=== PATIENT | female | born 1990 | race Caucasian/White ===

== ENCOUNTER 2019-04-18 12:41 | Outpatient (CLI) | payer OTHER ==
[~2019-04-18] VITALS: Ht 154.9 cm; Wt 80.9 kg
[2019-04-18 13:14] VITALS: BP 128/69; PULSE 113; RESP 18; Ht 154.9 cm; Wt 80.9 kg
[2019-04-18] MEDS ORDERED: PNV11TAB PO (13:16)
--- NOTE | 2019-04-18 17:13 | TRIAGE ---
OB Triage Datetime Report Generated by CPN: 04/18/2019 17:12 Datetime: 04/18/2019 16:43 Stage of : OB Triage Vaginal Exam Dilatation (cms): 0.0 Exam By: S PEPE Vaginal Bleeding: None Cervix, Consistency: Soft Cervix, Position: Posterior Presentation 'A': Cephalic Datetime: 04/18/2019 16:38 Labor Evaluation Frequency: 8-12 Monitor Mode: External Duration (sec)2399: 50-70 Quality: Mild Pattern: Normal: <= 5 Contractions in 10 Minutes Resting Tone [place]: Relaxed Heart Rate FHR Baseline Rate: 145 Monitor Mode: External US Variability: Moderate 6-25 bpm Accelerations: 10X10 Decelerations: None Category: Category I Pain Assessment Pain Scale: 0 Pain Presence: None/Denies Pain Type: N/A Pain Goal: 3 Pain Relief Measures: Comfort Measures Datetime: 04/18/2019 15:46 Labor Evaluation Frequency: 8-10 Monitor Mode: External Duration (sec)2399: 50-60 Quality: Mild Pattern: Normal: <= 5 Contractions in 10 Minutes Resting Tone [place]: Relaxed Heart Rate FHR Baseline Rate: 145 Monitor Mode: External US Variability: Moderate 6-25 bpm Accelerations: 10X10 Decelerations: None Category: Category I Pain Assessment Pain Scale: 0 Pain Presence: None/Denies Pain Type: N/A Pain Goal: 3 Pain Relief Measures: Comfort Measures Datetime: 04/18/2019 15:08 Labor Evaluation Frequency: 8-10 Monitor Mode: External Duration (sec)2399: 40-60 Quality: Mild Pattern: Normal: <= 5 Contractions in 10 Minutes Resting Tone [place]: Relaxed Heart Rate FHR Baseline Rate: 145 Monitor Mode: External US Variability: Moderate 6-25 bpm Accelerations: 10X10 Decelerations: None Category: Category I Pain Assessment Pain Scale: 3 Pain Presence: Constant Pain Type: Ache Pain Location: Abdomen Pain Goal: 3 Pain Relief Measures: Comfort Measures Datetime: 04/18/2019 14:10 Stage of : OB Triage Labor Evaluation Frequency: 8-10 Monitor Mode: External Duration (sec)2399: 40-60 Quality: Mild Pattern: Normal: <= 5 Contractions in 10 Minutes Resting Tone [place]: Relaxed Heart Rate FHR Baseline Rate: 145 Monitor Mode: External US Variability: Moderate 6-25 bpm Accelerations: 10X10 Decelerations: None Category: Category I Pain Assessment Pain Scale: 5 Pain Presence: Constant Pain Location: Abdomen Pain Goal: 3 Pain Relief Measures: Comfort Measures Datetime: 04/18/2019 13:51 Stage of : OB Triage Datetime: 04/18/2019 13:07 Stage of : OB Triage Assessment Type: Triage Maternal Assessment Level of Consciousness: Keenly Alert, Responsive DTR's/Clonus: DTRs 2+; No Clonus Headache: Denies Blurred Vision: No Respiratory Effort: Unlabored; Regular Rhythm; Equal Expansion Breath Sounds, Left: Clear and Equal Breath Sounds, Right: Clear and Equal Nausea/Vomiting: Denies RUQ Epigastric Pain: Denies Facial Edema: None Temperature Route: Axillary Fall Risk Assessment History of Falling: (0) No Secondary Diagnosis: (0) No Ambulatory Aid: (0) Bedrest/Nurse Assist IV Therapy: (0) No Gait: (0) Normal/Bedrest/Immobile Mental Status: (0) Oriented to Own Ability Fall Score: 0 Fall Risk Score Definition: No Risk: No action required Labor Evaluation Frequency: 0 Monitor Mode: External Pattern: Normal: <= 5 Contractions in 10 Minutes Resting Tone [place]: Relaxed Heart Rate FHR Baseline Rate: 145 Monitor Mode: External US Variability: Moderate 6-25 bpm Decelerations: None Pain Assessment Pain Scale: 5 Pain Presence: Constant Pain Type: N/A Pain Location: Other (Annotations: RT UPPER QUADRANT) Pain Goal: 3 Pain Relief Measures: Comfort Measures Datetime: 04/18/2019 13:05 Arrived By: Ambulatory Arrived From: Home Chief Complaint: C/O UPPER RIGHT QUADRANT PAIN THAT STARTED YESTERDAY AND RETURNED TODAY, DENIES L EAKING, BLEEDING OR UC'S Movement: Decreased Contractions: Denies/Absent Rupture of Membranes: Denies Vaginal Bleeding: None Vaginal Discharge: Denies Recent Sexual Intercouse: Denies Abdominal Trauma: Not Applicable Patient Complaints: None Time Provider Notified: 04/18/2019 14:10 Provider Notified: ANNABEL Initial Plan: MONITOR, BPP, JOVON, U/S GALLBLADDER CBC, CMP, AMYLASE, LYPASE
--- NOTE | 2019-04-18 19:00 | PN ---
Triage Information Date/Time 04/18/19 Reason for visit: Abd/pelvic pain Weeks of Gestation 38w2d /Para primigravida Diabetes: none Hypertention: none Objective Vital Signs Date Temp Pulse Resp B/P (MAP) Pulse Ox O2 O2 Flow FiO2 Time Delivery Rate 04/18/19 98.2 113 18 128/69 13:14 (88) Heart Rate: 140's Contractions: 6-10 Minutes Apart Exam abdomen soft no significant tenderness Results/Medications Result Diagram: 04/18/19 1429 04/18/19 1429 Results 24 hrs Laboratory Tests Test 04/18/19 14:29 White Blood Count 9.7 Red Blood Count 3.86 L Hemoglobin 11.4 L Hematocrit 33.9 L Mean Corpuscular Volume 87.8 Mean Corpuscular Hemoglobin 29.5 Mean Corpuscular Hemoglobin Concent 33.6 Red Cell Distribution Width 15.8 H Platelet Count 284 Mean Platelet Volume 10.8 H Immature Granulocytes % 0.600 H Neutrophils % 76.5 Lymphocytes % 14.4 L Monocytes % 7.9 Eosinophils % 0.4 Basophils % 0.2 Nucleated Red Blood Cells % 0.0 Immature Granulocytes # 0.060 H Neutrophils # 7.4 Lymphocytes # 1.4 Monocytes # 0.8 Eosinophils # 0.0 Basophils # 0.0 Nucleated Red Blood Cells # 0.0 Sodium Level 138 Potassium Level 3.9 Chloride Level 110 Carbon Dioxide Level 20 L Anion Gap 8 Blood Urea Nitrogen 8 Creatinine 0.44 Est Glomerular Filtrat Rate mL/min > 60 Glucose Level 97 Calcium Level 8.6 Total Bilirubin 0.3 Direct Bilirubin 0.00 Indirect Bilirubin 0.3 Aspartate Amino Transf (AST/SGOT) 18 Alanine Aminotransferase (ALT/SGPT) 15 Alkaline Phosphatase 151 H Total Protein 6.6 Albumin 3.3 Globulin 3.30 H Albumin/Globulin Ratio 1.00 Amylase Level 98 Lipase 56 Imaging Results BPP 8/8 JOVON 14.8 abdominal u/s no gall stone , mild steatosis of liver Disposition: Discharge Assessment/Plan A IUP 38w2d RUQ pain (resolved) P discharge home with routine labor instructions ANITA BANUELOS MD Apr 18, 2019 19:00
== END 2019-04-18 17:01 | disposition home or self-care (01) ==
LOC: L-D 12:41 → OBT 12:41
PROVIDERS: ATTEND Specialist
DX: O26.893 Other specified pregnancy related conditions, third trimester (principal); R10.11 Right upper quadrant pain; Z3A.38 38 weeks gestation of pregnancy
CPT/HCPCS: 76705; 76818; 80053; 82150; 83690; 85025; Z7500; G0463

== ENCOUNTER 2019-05-04 20:31 | Inpatient (IN) | payer OTHER ==
[~2019-05-04] VITALS: Ht 154.9 cm; Wt 84.4 kg
[~2019-05-04 20:31] MED LIST: PNV11TAB PO
[2019-05-04 20:47] VITALS: BP 121/69; PULSE 90; RESP 18; Ht 154.9 cm; Wt 84.4 kg
[2019-05-04] MEDS ORDERED: LACTATED RINGER'S 1,000 ML IV PRN (21:21)
[2019-05-04] MEDS ORDERED: AMPICILLIN 2 GM/NS (PMX) 100 ML IV ONE (21:30)
[2019-05-04] MEDS ORDERED: MISOPROSTOL 200 MCG TAB PR PRN (21:30)
[2019-05-04] MEDS ORDERED: OXYTOCIN 30 UNITS/LR 500 ML IV PRN (21:30)
[2019-05-04] MEDS ORDERED: LIDOCAINE 1% (MPF) 30 ML INJ INJ PRN (21:30)
[2019-05-04] MEDS ORDERED: CARBOPROST 250 MCG INJ IM PRN (21:30)
[2019-05-04] MEDS ORDERED: OXYTOCIN 30 UNITS/LR 500 ML IV SCH ×2 (21:30)
[2019-05-04] MEDS ORDERED: BUTORPHANOL 2 MG INJ IV PRN (21:30)
[2019-05-04] MEDS ORDERED: IBUPROFEN 600 MG TAB PO PRN (21:30)
[2019-05-04] MEDS ORDERED: METHYLERGONOVINE 0.2 MG INJ IM PRN (21:30)
--- NOTE | 2019-05-04 21:37 | TRIAGE ---
OB Triage Datetime Report Generated by CPN: 05/04/2019 21:36 Datetime: 05/04/2019 21:35 Assessment Type: Admission Assessment Vaginal Bleeding: None Maternal Assessment Level of Consciousness: Keenly Alert, Responsive DTR's/Clonus: DTRs 2+; No Clonus Headache: Denies Blurred Vision: No Respiratory Effort: Unlabored; Regular Rhythm; Equal Expansion Breath Sounds, Left: Clear and Equal Breath Sounds, Right: Clear and Equal Nausea/Vomiting: Denies RUQ Epigastric Pain: Denies Facial Edema: None Fall Risk Assessment History of Falling: (0) No Secondary Diagnosis: (0) No Ambulatory Aid: (0) Bedrest/Nurse Assist IV Therapy: (0) No Gait: (0) Normal/Bedrest/Immobile Mental Status: (0) Oriented to Own Ability Fall Score: 0 Fall Risk Score Definition: No Risk: No action required Datetime: 05/04/2019 21:30 Labor Evaluation Frequency: 4-7 Monitor Mode: External Duration (sec)2399: 50-150 Quality: Mild Pattern: Normal: <= 5 Contractions in 10 Minutes Resting Tone [place]: Relaxed Heart Rate FHR Baseline Rate: 140 Monitor Mode: External US Variability: Moderate 6-25 bpm Accelerations: 15X15 Decelerations: Early Datetime: 05/04/2019 21:05 Vaginal Exam Dilatation (cms): 1.0 Effacement (%): 0 Station: -3 Exam By: SAQIB Amniotic Fluid Amount: Small Amniotic Fluid Odor: None Vaginal Bleeding: None Pool: Positive Nitrazine: Negative Cervix, Consistency: Firm Cervix, Position: Midposition Datetime: 05/04/2019 20:44 Assessment Type: Triage Maternal Assessment Level of Consciousness: Keenly Alert, Responsive DTR's/Clonus: DTRs 2+; No Clonus Headache: Denies Blurred Vision: No Respiratory Effort: Unlabored; Regular Rhythm; Equal Expansion Breath Sounds, Left: Clear and Equal Breath Sounds, Right: Clear and Equal Nausea/Vomiting: Denies RUQ Epigastric Pain: Denies Lower Extremities Edema: Bilateral Lower Extremities Degree: 1+ Upper Extremities Edema: None Degree: None Facial Edema: None Fall Risk Assessment History of Falling: (0) No Secondary Diagnosis: (0) No Ambulatory Aid: (0) Bedrest/Nurse Assist IV Therapy: (0) No Gait: (0) Normal/Bedrest/Immobile Mental Status: (0) Oriented to Own Ability Fall Score: 0 Fall Risk Score Definition: No Risk: No action required Pain Assessment Pain Scale: 0 Pain Presence: None/Denies Pain Type: N/A Datetime: 05/04/2019 20:35 Time of Arrival: 05/04/2019 20:25 EGA: 40.4 Arrived By: Ambulatory Arrived From: Home Chief Complaint: vaginal leaking at 1930 Movement: Present Contractions: Denies/Absent Rupture of Membranes: Unsure Vaginal Bleeding: None Vaginal Discharge: Denies Recent Sexual Intercouse: Denies Abdominal Trauma: Not Applicable Patient Complaints: None Time Provider Notified: 05/04/2019 21:05 Provider Notified: ANNABEL Initial Plan: NST Datetime: 04/18/2019 13:07 Fall Score: 0 Fall Risk Score Definition: No Risk: No action required Datetime: 04/18/2019 13:05 Time of Arrival: 05/04/2019 21:33 EGA: 40.4
[2019-05-04] MEDS: LACTATED RINGER'S 1,000 ML IV SCH (21:54)
[2019-05-05] MEDS ORDERED: OXYTOCIN 30 UNITS/LR 500 ML IV SCH (00:30)
[2019-05-05] MEDS: AMPICILLIN 1 GM/NS (PMX) 50 ML IV SCH ×6 (02:04→22:03)
[2019-05-05] MEDS: DEXTROSE 5%-LR 1,000 ML IV SCH ×2 (05:21→21:21)
--- NOTE | 2019-05-05 07:22 | HP ---
Date/Time of Note Date/Time of Note DATE: 05/05/19 TIME: 07:05 OB - History Hx of Present Free Text/Dictation 29 y.o primigravida at 40w5d with c/o leaking fluid per vagina without having UC's. Initial VE //-3, spec exam showed clear fluid. ROM plus positive. known to be ADM FBS 87 GBS pos, Hx of treatment on 10/18/18 for urine pos for GBS EFW 4025gm.,JOVON somehow not done with this u/s admitted for IOL with pitocin since EFM showed 3-5min apart of UC's. Chief Complaint: leaking fluid Estimated Due Date: Apr 30, 2019 : 1 Para: 0 Spontaneous : 0 Therapeutic : 0 Care: Good Care Ultrasounds: Normal mid trimester US Obstetrical Complications: Gestational Diabetes Medical Complications: None Past Family/Social History * Past Medical, Surgical, Family and Obstetric Histories reviewed from chart. Blood Type: O+ Rubella: immune RPR/VDRL: Negative GBS Status: Positive HBsAG: Negative OB Admission Exam Vital Signs Vital Signs Vital Signs Date Temp Pulse Resp B/P (MAP) Pulse Ox O2 O2 Flow FiO2 Time Delivery Rate 05/04/19 98.1 90 18 121/69 Room Air 20:47 (86) Physical Exam HEENT: WNL Heart: Rhythm Normal Lungs: Clear, Equal Abdomen: WNL Extremities: Normal Reflexes: Normal Cervical Dilatation: 1cm Effacement: 0% Station: -3 Membranes: Ruptured Amniotic Fluid: Clear Heart Rate: 140's Accelerations: Accelerations Present Decelerations: No Decelerations Varibility: Moderate Contractions on Admission: < 5 Minutes Apart Intensity: Mild Last 72 hours Lab Results CBC & BMP 05/04/19 21:50 OB Assessment/Plan Reason for admission: rupture of membranes Other Assessment: IUP 40w5d Plan: Induction Induction Method: per Pitocin Protocol ANITA BANUELOS MD May 05, 2019 07:20
[2019-05-05] MEDS: LACTATED RINGER'S 1,000 ML IV SCH ×3 (07:36→20:11)
--- NOTE | 2019-05-05 10:48 | PREAC ---
Date/Time of Note Date/Time of Note DATE: 05/05/19 TIME: 10:46 Anesthesia Eval and Record Evaluation Time Pre-Procedure Interview DATE: 05/05/19 TIME: 10:46 Age 29 Sex female NPO: 8 hrs Preoperative diagnosis labor pain Planned procedure epidural Past Medical History Past Medical History: Includes : Gestational age: (40.4) Surgery & Anesthesia Issues No known issue Meds Anticoagulation: No Beta Callum within 24 hr: No Reason Beta Callum not given: Pt. not on B-Callum Reported Medications [id number] ( 19) 1 Each Tablet, 1 TAB PO DAILY, TAB 04/18/19 Current Medications Lactated Ringer's 1,000 ml @ 125 mls/hr Q8H IV Last administered on 05/05/19at 07:36; Admin Dose 125 MLS/HR; Start 05/04/19 at 21:21 Dextrose/Lactated Ringer's 1,000 ml @ 125 mls/hr Q8H IV ; Start 05/04/19 at 21:21 Ampicillin 50 ml @ 100 mls/hr Q4H IV Last administered on 05/05/19at 10:01; Admin Dose 100 MLS/HR; Start 05/05/19 at 01:30 Butorphanol Tartrate (Stadol) 2 mg Q2H PRN IV .PAIN SCALE 6-10; Start 05/04/19 at 21:30 Lidocaine (Xylocaine 1% (Mpf)) 30 ml ONCE PRN INJ .EPISIOTOMY; Start 05/04/19 at 21:30 Oxytocin/Lactated Ringer's 500 ml @ 500 mls/hr ONCE POST IV ; Start 05/04/19 at 21:30 Oxytocin/Lactated Ringer's 500 ml @ 125 mls/hr POST IV ; Start 05/04/19 at 21:30 Ibuprofen (Motrin) 600 mg ONCE PRN PO .PAIN 1-5; Start 05/04/19 at 21:30 Lactated Ringer's 1,000 ml @ 2,000 mls/hr Q30M PRN IV .ANESTHESIA; Start 05/04/19 at 21:21 Oxytocin/Lactated Ringer's 500 ml @ 0 mls/hr ONCE PRN IV .VAGINAL BLEEDING; Start 05/04/19 at 21:30 Methylergonovine Maleate (Methergine) 0.2 mg ONCE PRN IM .VAGINAL BLEEDING; Start 05/04/19 at 21:30 Carboprost Tromethamine (Hemabate) 250 mcg ONCE PRN IM .VAGINAL BLEEDING; Start 05/04/19 at 21:30 Misoprostol (Cytotec) 1,000 mcg ONCE PRN [place] .VAGINAL BLEEDING; Start 05/04/19 at 21:30 Oxytocin/Lactated Ringer's 500 ml @ 0 mls/hr FOR AUGMENTATION IV Last administered on 05/05/19at 00:55; Admin Dose 1 MLS/HR; Start 05/05/19 at 00:30 Meds reviewed: Yes Allergies Coded Allergies: No Known Allergy (Unverified , 04/18/19) Allergies Reviewed: Yes Labs/Studies Labs Reviewed: Reviewed by anesthesiologist Result Diagram: 05/04/192149 Laboratory Tests 05/04/19 21:50 Blood Bank Test 05/04/19 21:50 Antibody Screen NEGATIVE Blood Type O POSITIVE Rh Immune Globulin Candidate NO test: Positive Studies: ECG (n/a), CXR (n/a) Pre-procedure Exam Last vitals Vital Signs Date Temp Pulse Resp B/P (MAP) Pulse Ox O2 O2 Flow FiO2 Time Delivery Rate 05/04/19 98.1 90 18 121/69 Room Air 20:47 (86) Airway: Adequate mouth opening Mallampati: Mallampati I Teeth: Normal Lung: Normal Heart: Normal ASA Physical Status ASA physical status: 2 Emergency: None Planned Anesthetic Neuraxial: Epidural Pre-operative Attestations Prior to commencing anesthesia and surgery, the patient was re-evaluated, there was verification of: *The patient's identity *The results of appropriate recent lab work and preoperative vital signs *The above evaluation not changing prior to induction *Anesthetic plan, risk benefits, alternative and complications discussed with patient/family; questions answered; patient/family understands, accepts and wis hes to proceed. MARTELL GARCIA MD May 05, 2019 10:47
[2019-05-05] MEDS ORDERED: FENTAnyl 2MCG/ML-ROPIV 0.2% 100 ML ONE (11:04)
[2019-05-05] MEDS ORDERED: ONDANSETRON 4 MG INJ IV STA (12:57)
[2019-05-05] MEDS ORDERED: NALOXONE (0.4 MG/ML) INJ IV PRN (18:30)
[2019-05-05] MEDS: FENTAnyl 2MCG/ML-ROPIV 0.2% 100 ML BAG EPI SCH ×2 (18:48→23:49)
[2019-05-05] MEDS ORDERED: LIDOCAINE 1.5%/EPI MPF (SDV) 30 ML VIAL ONE (20:04)
[2019-05-06] MEDS: AMPICILLIN 1 GM/NS (PMX) 50 ML IV SCH ×2 (01:49→05:50)
[2019-05-06] MEDS: LACTATED RINGER'S 1,000 ML IV SCH (04:53)
[2019-05-06] MEDS: FENTAnyl 2MCG/ML-ROPIV 0.2% 100 ML BAG EPI SCH (05:11)
[2019-05-06] MEDS: DEXTROSE 5%-LR 1,000 ML IV SCH ×3 (05:21→21:21)
[2019-05-06] MEDS ORDERED: FENTAnyl 50 MCG/ML VIAL ONE (07:51)
[2019-05-06] MEDS ORDERED: CEFAZOLIN 2 GM/50 ML (PMX) 50 ML IVPB SCH ×2 (08:00)
[2019-05-06] MEDS ORDERED: OXYTOCIN 30 UNITS/LR 500 ML IV PRN ×2 (08:00)
[2019-05-06] MEDS ORDERED: OXYTOCIN 30 UNITS/LR 500 ML IV SCH (08:00)
[2019-05-06] MEDS ORDERED: MISOPROSTOL 200 MCG TAB PR PRN ×3 (08:00→09:00)
[2019-05-06] MEDS ORDERED: CARBOPROST 250 MCG INJ IM PRN ×2 (08:00)
[2019-05-06] MEDS ORDERED: METHYLERGONOVINE 0.2 MG INJ IM PRN ×2 (08:00)
[2019-05-06] MEDS ORDERED: LIDOCAINE 1.5%/EPI MPF (SDV) 30 ML VIAL ONE (08:01)
[2019-05-06] MEDS ORDERED: NA BICARB 50 MEQ/50 ML VIAL ONE (08:01)
[2019-05-06] MEDS ORDERED: DEXAMETHASONE 4 MG/ML 1 ML INJ ONE (08:02)
[2019-05-06] MEDS ORDERED: ONDANSETRON 4 MG INJ ONE (08:04)
--- NOTE | 2019-05-06 08:09 | HP ---
Date/Time of Note Date/Time of Note DATE: 05/06/19 TIME: 08:05 OB - History Hx of Present Free Text/Dictation 29 YO G1 with IUP at 40.6 weeks with EDC 04/30/2019 who presented for IOL. she progressed 10 cm. developed absence variability and intermittent late decelerations and large amount of [place]. vertex remained at -3. patient unable to push effectively. Need to be delivered delivery. I discussed with the patient the risks, benefits, indications, and alternatives of procedure including but not limited to risks of infection, bleeding, damage to other organs, bowel, bladder, hernia formation, scar formation, possibility of blood transfusion, possible need for emergency hysterectomy. She was allowed to ask questions. All her questions were answered. Informed consent has been obtained. Care: Good Care Obstetrical Complications: Gestational Diabetes Medical Complications: None Past Family/Social History * Past Medical, Surgical, Family and Obstetric Histories reviewed from chart. OB Admission Exam Vital Signs Vital Signs Vital Signs Date Temp Pulse Resp B/P (MAP) Pulse Ox O2 O2 Flow FiO2 Time Delivery Rate 05/04/19 98.1 90 18 121/69 Room Air 20:47 (86) Physical Exam HEENT: WNL Heart: Rhythm Normal Lungs: Clear, Equal Abdomen: WNL Extremities: Normal Reflexes: Normal Membranes: Ruptured Last 72 hours Lab Results CBC & BMP 05/04/19 21:50 OB Assessment/Plan Reason for admission: active labor Other Assessment: non reassuring heart tones GDM Vertex high and poor pushing efforts Macrosomia Plan: Section KORTNEY JIN MD May 06, 2019 08:09
[2019-05-06] MEDS ORDERED: AZITHROMYCIN 500MG/NS (PMX) 250 ML IVPB STA (08:14)
[2019-05-06] MEDS ORDERED: morphine SULFATE/PF (10 MG/10 ML) INJ ONE (08:21)
[2019-05-06] MEDS ORDERED: LACTATED RINGER'S 1,000 ML IV SCH (08:54)
[2019-05-06] MEDS ORDERED: DIPHENHYDRAMINE 50 MG INJ IV PRN (09:00)
[2019-05-06] MEDS ORDERED: KETOROLAC 30 MG INJ IV PRN (09:00)
[2019-05-06] MEDS ORDERED: ZOLPIDEM 5 MG TAB PO PRN (09:00)
[2019-05-06] MEDS ORDERED: NA PHOSPHATE/BIPHOS 133 ML ENEMA PR PRN (09:00)
[2019-05-06] MEDS: SENNA/DOCUSATE NA (8.6MG/50MG) TAB PO SCH ×2 (09:00→21:07)
[2019-05-06] MEDS ORDERED: LANOLIN HPA 1 PKT TOP PRN (09:00)
[2019-05-06] MEDS ORDERED: ONDANSETRON 4 MG INJ IV PRN (09:00)
[2019-05-06] MEDS ORDERED: NALOXONE (0.4 MG/ML) INJ IV PRN (09:00)
[2019-05-06] MEDS ORDERED: HYDROmorphONE 0.5 MG/0.5 ML SYG IV PRN (09:00)
[2019-05-06] MEDS ORDERED: OXYCODONE/ACETAMINOPHEN (5/325) TAB PO PRN (09:00)
--- NOTE | 2019-05-06 09:00 | OPR ---
Date/Time of Note Date/Time of Note DATE: 05/06/19 TIME: 08:57 Operative Report Procedure Date: May 06, 2019 Preoperative Diagnosis IUP at 41 weeks Non reassuring heart tones Postoperative Diagnosis same Operation/Procedure Performed Primary Low Transverse delivery Surgeon Marina Elizondo MD [facility] Staff Dr. Santacruz Anesthesia Type: spinal Estimated Blood Loss: other (700 ml) Transfusion none Specimen none Grafts/Implants none Tubes/Drains Meraz Cath Complications none Pt Condition Post Procedure: stable Disposition: PACU Procedure Description The risks, benefits, indications, alternatives of procedure including, but not limited to risk of infection, bleeding, damage to other organs, bowel, bladder, hernia formation, scar formation, possibility of blood transfusions were discussed with the patient. She was allowed to ask questions. All her questions were answered. Informed consent was obtained. DESCRIPTION OF PROCEDURE: She was taken to the operating room. Spinal anesthesia was induced. She was prepped and draped in the usual sterile fashion. Surgical time out one. Anesthesia was tested to be adequate. With permission from anesthesiologist, a knife was used to make a Pfannenstiel skin incision. The incision was taken down in layers. The fascia was cut, undermined and from the underlying muscle using sharp and blunt dissection. All the bleeders were cauterized. Peritoneum was entered bluntly. A low transverse incision was developed over the uterus. Amniotic fluid was clear and adequate. A viable infant in vertex presentation was delivered without any difficulty. The cord was clamped and cut, handed to awaiting team. Placenta was then delivered. Uterus was exteriorized, wrapped around a moist lap. Inside uterus was cleaned using a dry lap. All residual membranes were removed. The uterine incision was then closed using #1 Monocryl in 2 layers. The uterus was inserted back inside the abdominal cavity. Irrigation was done carefully. Careful evaluation of the uterine incision revealed no further bleeding. The peritoneum and rectus muscles and fascia were evaluated. All bleeders cauterized. Peritoneum was closed using 2-0 Monocryl. At this time, the count was correct. Rectus muscle was reapproximated using 2-0 Monocryl. Rectus fascia was closed using #1 Vicryl. Subcutaneous tissue was cleaned and irrigated. All bleeders cauterized and the skin closed using Insorb. All counts correct. MARINA ELIZONDO MD May 06, 2019 09:00
[2019-05-06] MEDS ORDERED: KETOROLAC 30 MG INJ ONE (09:19)
[2019-05-06] MEDS: HYDROmorphONE 0.5 MG/0.5 ML SYG IV PRN ×2 (09:23→12:52)
[2019-05-06] MEDS ORDERED: PIPER-TAZO 3.375 GM IV (PMX) 100 ML IVPB SCH (10:00)
[2019-05-06 11:40] VITALS: BP 140/74; PULSE 67; RESP 16
[2019-05-06] MEDS: IBUPROFEN 600 MG TAB PO SCH ×2 (12:00→18:00)
[2019-05-06] MEDS: PIPER-TAZO 3.375 GM IV (PMX) 100 ML IVPB SCH ×2 (15:33→23:31)
[2019-05-06 16:00] VITALS: BP 132/78; PULSE 73; RESP 18
--- NOTE | 2019-05-06 16:40 | PAC ---
Date/Time of Note Date/Time of Note DATE: 05/06/19 TIME: 16:40 Post-Anesthesia Notes Post-Anesthesia Note Last documented vital signs Vital Signs Date Temp Pulse Resp B/P (MAP) Pulse Ox O2 O2 Flow FiO2 Time Delivery Rate 05/06/19 97.7 67 16 140/74 Room Air 11:40 (96) Activity: WNL Respiratory function: WNL Cardiovascular function: WNL Mental status: Baseline Pain reasonably controlled: Yes Hydration appropriate: Yes Nausea/Vomiting absent: Yes MICHELE ALCALA May 06, 2019 16:40
[2019-05-06 16:42] VITALS: BP 132/78; PULSE 73; RESP 18
[2019-05-06 20:00] VITALS: BP 118/55; PULSE 79; RESP 18
[2019-05-07] VITALS: BP 102/51; PULSE 94; RESP 18
[2019-05-07 04:00] VITALS: BP 93/51; PULSE 95; RESP 18
[2019-05-07] MEDS: DEXTROSE 5%-LR 1,000 ML IV SCH ×2 (05:21→13:21)
[2019-05-07] MEDS: IBUPROFEN 600 MG TAB PO SCH ×4 (06:00→17:57)
[2019-05-07] MEDS: PIPER-TAZO 3.375 GM IV (PMX) 100 ML IVPB SCH (07:34)
--- NOTE | 2019-05-07 07:56 | PAC ---
Date/Time of Note Date/Time of Note DATE: 05/07/19 TIME: 07:56 Post-Anesthesia Notes Post-Anesthesia Note Last documented vital signs Vital Signs Date Temp Pulse Resp B/P (MAP) Pulse Ox O2 O2 Flow FiO2 Time Delivery Rate 05/07/19 98.0 95 18 93/51 (65) 99 Room Air 04:00 Activity: WNL Respiratory function: WNL Cardiovascular function: WNL Mental status: Baseline Pain reasonably controlled: Yes Hydration appropriate: Yes Nausea/Vomiting absent: No MARTELL GARCIA MD May 07, 2019 07:56
[2019-05-07 08:00] VITALS: BP 104/57; PULSE 90; RESP 18
[2019-05-07] MEDS: OXYCODONE/ACETAMINOPHEN (5/325) TAB PO PRN ×2 (09:06→16:05)
[2019-05-07] MEDS: SENNA/DOCUSATE NA (8.6MG/50MG) TAB PO SCH ×2 (10:17→22:26)
--- NOTE | 2019-05-07 15:01 | PN ---
Date/Time of Note Date/Time of Note DATE: 05/07/19 TIME: 14:59 OB Subjective Subjective Subjective POD#1 Patient is doing well. She denies nausea, vomiting, shortness of breath, chest pain, headache. She has been ambulating without difficulty, tolerating regular diet. Pain is well controlled on current medications OB Objective Objective Objective Vital Signs Date Temp Pulse Resp B/P (MAP) Pulse Ox O2 O2 Flow FiO2 Time Delivery Rate 05/07/19 98.2 90 18 104/57 Room Air 08:00 (73) 05/07/19 99 04:00 General: AAO X 3, comfortable, NAD, appropriate mood and affect. ABD: +BS. Soft, non-tender. Uterus 2 cm below umbilicus Incision: Dry dressing Flank: No CVA tenderness (B/L) LE: Mild edema. No clubbing, cyanosis, thigh or calf tenderness (B/L). Homans 'sign is negative OB Assessment/Plan Other plan: 29 years old 1 para 1-0-0-1 s/p primary delivery at 40 weeks and 6 days. POD#1 - AF, VSS - Baby is doing well, at bed side. She is bonding well - Contraception methods with R/B/A/FR discussed - Continue care HERNAN PORTILLO May 07, 2019 15:01
[2019-05-07 16:00] VITALS: BP 104/58; PULSE 88; RESP 18
[2019-05-07 19:50] VITALS: BP 110/66; PULSE 77; RESP 19
[2019-05-08 03:50] VITALS: BP 111/56; PULSE 83; RESP 19
[2019-05-08] MEDS: IBUPROFEN 600 MG TAB PO SCH ×5 (06:08→23:32)
--- NOTE | 2019-05-08 07:58 | DS ---
Date/Time of Note Date/Time of Note DATE: 05/08/19 TIME: 07:56 Obstetrical Discharge Record Final Diagnosis Final Diagnosis: Term delivered Other Final Diagnosis s/p primary c/s. post op had elevated WBC, but remained afebrile, tolerating regular diet and good pain control on oral meds. + Flatus Section Section: Primary Primary Indication non reassuring heart tones Complications Augmentation: Yes Induction: Yes Rupture of Membranes: No Condition on Discharge Physical Assessment Voiding: Yes Bowel Movement: Yes Breast: Soft, non-tender, Filling Fundus: Firm Abdomen and Incision: soft, appropriate tender Calf Tenderness: No Patient Condition: Good KORTNEY JIN MD May 08, 2019 07:58
[2019-05-08 08:00] VITALS: BP 120/67; PULSE 80; RESP 18
[2019-05-08] MEDS: SENNA/DOCUSATE NA (8.6MG/50MG) TAB PO SCH ×2 (09:27→22:06)
[2019-05-08 17:20] VITALS: BP 116/66; PULSE 77; RESP 18
[2019-05-08 20:00] VITALS: BP 120/72; PULSE 77; RESP 18
[2019-05-09 04:04] VITALS: BP 134/80; PULSE 67; RESP 18
[2019-05-09] MEDS: IBUPROFEN 600 MG TAB PO SCH ×2 (05:43→11:09)
[2019-05-09 08:00] VITALS: BP 123/76; PULSE 70; RESP 17
[2019-05-09] MEDS: SENNA/DOCUSATE NA (8.6MG/50MG) TAB PO SCH (08:29)
[2019-05-09] MEDS ORDERED: DIPHTH/TET/ACEL PERTUSS (ADULT) 0.5 ML VIAL IM* ONE (09:00)
[2019-05-09] MEDS ORDERED: MEASLES,MUMPS,RUBELLA VACCINE INJ SC* ONE (09:00)
[2019-05-10] MEDS ORDERED: IBUP-1542 PO (03:15)
[2019-05-10] MEDS ORDERED: ACET325T33 PO (03:15)
[2019-05-10] MEDS ORDERED: CEPH-443 PO (03:15)
--- NOTE | 2019-05-10 18:52 | DELSUM ---
Delivery Summary A-C Datetime Report Generated by CPN: 05/10/2019 18:51 DELIVERY PERSONNEL Forming Yardage Control Operator: Mao, Daiana MATERNAL INFORMATION Delivery Anesthesia: Epidural Medications in Delivery: See anesthesia notes Delivery QBL (ml): 700 Placenta Cultured: No Maternal Complications: None LABOR SUMMARY EDC: 04/30/2019 00:00 No. Babies in Womb: 1 Attempted: No Labor Anesthesia: Epidural LABOR INFORMATION Reason for Induction: Postterm Group B Beta Strep: Positive Antibiotics # of Doses: 11 Antibiotics Time of Last Dose: 05/06/2019 07:55 Steroids Given: None Reason Steroids Not Administered: Not Applicable MEMBRANES Membranes Rupture Method: Spontaneous Rupture of Membranes: 05/05/2019 06:20 Length of Rupture (hr): 25.95 Amniotic Fluid Color: Clear Amniotic Fluid Amount: Small Amniotic Fluid Odor: None STAGES OF LABOR Stage 3 hr: 0 Stage 3 min: 1 CSECTION DELIVERY Primary Indication: Failure of Descent Secondary Indication: Nonreassuring Stat CSection Urgency: Non Elective CSection Incidence: Primary Labor: Labor Elective: Nonelective CSection Incision: Lower Uterine Transverse BABY A INFORMATION Delivery Date/Time: 05/06/2019 08:17 Method of Delivery: Born in Route : No : N/A Forceps: N/A Vacuum Extraction: N/A Shoulder Dystocia : No SHOULDER DYSTOCIA BABY A Delivery Date/Time: 05/06/2019 08:17 PRESENTATION/POSITION BABY A Presentation: Cephalic Cephalic Presentation: Vertex Vertex Position: Left Occipital Anterior Breech Presentation: N/A PLACENTA INFORMATION BABY A Placenta Delivery Time : 05/06/2019 08:18 Placenta Method of Delivery: Manual Removal Placenta Status: Delivered SCORES BABY A Heart Rate 1 min: >100 bpm Resp Effort 1 min: Good Cry Reflex Irritability 1 min: Cough/Sneeze/Pulls Away Muscle Tone 1 min: Active Motion Color 1 min: Body [place], Extremit Blue Resuscitation Effort 1 min: Tactile Stimulation SCORE 1 MIN: 9 Heart Rate 5 min: >100 bpm Resp Effort 5 min: Good Cry Reflex Irritability 5 min: Cough/Sneeze/Pulls Away Muscle Tone 5 min: Active Motion Color 5 min: Body [place], Extremit Blue Resuscitation Effort 5 min: Tactile Stimulation SCORE 5 MIN: 9 INFANT INFORMATION BABY A Gestational Age at Delivery: 40.6 Gestational Status: Full Term- 39- 40.6 Weeks Outcome : Liveborn, with signs of life Infant Condition : Stable Infant Sex: Male IDENTIFICATION/MEDS BABY A ID Band Number: [id number] ID Band Location: Right Leg; Left Arm Sensor Applied: Yes Sensor Number: [id number] Sensor Location : Cord Clamp Vitamin K Given : Not Given Erythromycin Given: Not Given WEIGHT/LENGTH BABY A Infant Birthweight (gm): 3945 Weight (lb): 8 Weight (oz): 11 Infant Length (in): 21.00 Length (cm): 53.34 CORD INFORMATION BABY A No. Cord Vessels: 3 Nuchal Cord : Around Neck x2, Tight Cord Blood Taken: Yes Suction: Mouth; Nose ASSESSMENT BABY A Infant Complications: Decreased Variability; Multiple Late Decels Physical Findings at Delivery: Within Normal Limits Infant Respirations: Appears Normal Field Observer/ALS Called : No Infant Care By: Alan Callahan RN Transferred To: Remains with Mother
== END 2019-05-09 18:49 | disposition home or self-care (01) | DRG 788 ==
LOC: OBT 20:31 → L-D 20:33 → OBT 21:10 → L-D 21:10 → PP1 05-06 11:40
PROVIDERS: ADMIT Specialist; ATTEND Specialist
PROC: 10D00Z1 Extraction of Products of Conception, Low, Open Approach (ICD-10-PCS; principal; 2019-05-06 08:00)
DX: O48.0 Post-term pregnancy (principal); O24.429 Gestational diabetes mellitus in childbirth, unspecified control; O76 Abnormality in fetal heart rate and rhythm complicating labor and delivery; Z37.0 Single live birth; Z3A.40 40 weeks gestation of pregnancy
CPT/HCPCS: 36415; 36600; 62322; 76815; 82803; 84112; 85025; 85610; 85730; 86592; 86850; 86900; 86901; 87340; 99464; G0463; J0290; J0456; J1100; J1170; J1885; J2210; J2274; J2405; J2543; J2590; J3010; J7120; J7121

== ENCOUNTER 2019-05-10 00:52 | Emergency (ER) | payer OTHER ==
[~2019-05-10] VITALS: Ht 154.9 cm; Wt 78.9 kg
[~2019-05-10 00:52] MED LIST changes: +ACET325T33 PO; +CEPH-443 PO; +IBUP-1542 PO
[2019-05-10 00:56] VITALS: Ht 154.9 cm; Wt 78.9 kg
[2019-05-10] MEDS ORDERED: KETOROLAC 30 MG INJ IV STA (01:33)
[2019-05-10] MEDS ORDERED: ONDANSETRON 4 MG INJ IV STA (01:33)
[2019-05-10] MEDS ORDERED: SOD CHLORIDE 0.9% 1,000 ML IV ONE (02:00)
[2019-05-10] MEDS ORDERED: CEFTRIAXONE 1 GM/50 ML (PMX) 50 ML IVPB ONE (02:30)
[2019-05-10] MEDS ORDERED: morphine 2 MG INJ IV STA (03:18)
[2019-05-10] MEDS ORDERED: ACETAMINOPHEN 500 MG TAB PO STA (03:18)
[2019-05-10 04:07] VITALS: BP 142/78; PULSE 86; RESP 16
--- NOTE | 2019-05-11 20:57 | ERD ---
ER Documentation Chief Complaint Chief Complaint MCDONALD w/N&V since &DC last 16th HPI History of Present Illness: 29-year-old female who denies a past medical history coming in today with complaint of headache, nausea vomiting. Patient reports having a recently, patient reports developing a mild headache after leaving the hospital on 05/06. Patient reports nausea vomiting starting on 05/07/2019. Patient reports 2 episodes of vomiting in the past 24 hours. Denies any other associated symptoms. Including fever and chills. At home pharmacological/nonpharmacological treatment for symptoms: Denies Denies social concerns; Denies recent foreign travel ROS All systems reviewed and are negative except as per history of present illness. Medications Home Meds Active Scripts Ibuprofen* (Motrin*) 600 Mg Tab, 600 MG PO Q6H PRN for PAIN AND OR ELEVATED TEMP, #30 TAB Prov:ABDIAS GARCES V [employer]NAGER 05/10/19 Acetaminophen* (Tylenol*) 325 Mg Tablet, 2 TAB PO Q6 PRN for PAIN AND OR ELEVATED TEMP, #30 TAB Prov:ABDIAS GARCES NP 05/10/19 Cephalexin* (Keflex*) 500 Mg Capsule, 500 MG PO QID for URINE INFECTION for 7 Days, CAP Prov:ABDIAS GARCES V COMMUNITY CASE MANAGER 05/10/19 Reported Medications [id number] ( 19) 1 Each Tablet, 1 TAB PO DAILY, TAB 04/18/19 Allergies Allergies: Coded Allergies: No Known Allergy (Unverified , 04/18/19) PMhx/Soc History of Surgery: Yes ( 05/06/19) Hx Alcohol Use: No Hx Substance Use: No Hx Tobacco Use: No Smoking Status: Never smoker FmHx Family History: No diabetes, No coronary disease Physical Exam Vitals Vital Signs Date Temp Pulse Resp B/P (MAP) Pulse Ox O2 O2 Flow FiO2 Time Delivery Rate 05/10/19 98.8 86 16 142/78 98 Room Air 04:07 (99) 05/10/19 98.5 86 18 137/78 97 00:56 (97) Physical Exam Const: No acute distress, afebrile Head: Atraumatic Eyes: Normal Conjunctiva ENT: Normal External Ears, Nose and Mouth. Neck: Full range of motion. No meningismus. Resp: Clear to auscultation bilaterally Cardio: Regular rate and rhythm, no murmurs Abd: Soft, non tender, non distended. No guarding, no masses, no rigidity. No signs of infection to wound. Skin: No petechiae or rashes Back: No midline or flank tenderness Ext: No cyanosis, or edema Neur: Awake and alert x3, speaking in clear sentences, no focal deficits or facial asymmetry Psych: Normal Mood and Affect Result Diagram: 05/10/19 0143 05/10/19 0143 Results 24 hrs Laboratory Tests Test 05/10/19 01:39 05/10/19 01:43 05/10/19 01:56 Bedside Urine pH (LAB) 7.5 Bedside Urine Protein (LAB) Negative Bedside Urine Glucose (UA) Negative Bedside Urine Ketones (LAB) Negative Bedside Urine Blood 3+ Bedside Urine Nitrite (LAB) Negative Bedside Urine Leukocyte Esterase 2+ (L White Blood Count 11.3 10^3/ul Red Blood Count 3.64 10^6/ul Hemoglobin 10.8 g/dl Hematocrit 32.5 % Mean Corpuscular Volume 89.3 fl Mean Corpuscular Hemoglobin 29.7 pg Mean Corpuscular 33.2 g/dl Hemoglobin Concent Red Cell Distribution Width 17.0 % Platelet Count 318 10^3/UL Mean Platelet Volume 10.3 fl Immature Granulocytes % 1.800 % Neutrophils % 74.0 % Lymphocytes % 16.4 % Monocytes % 6.4 % Eosinophils % 1.0 % Basophils % 0.4 % Nucleated Red Blood Cells % 0.3 /100WBC Immature Granulocytes # 0.200 10^3/ul Neutrophils # 8.4 10^3/ul Lymphocytes # 1.9 10^3/ul Monocytes # 0.7 10^3/ul Eosinophils # 0.1 10^3/ul Basophils # 0.1 10^3/ul Nucleated Red Blood Cells # 0.0 10^3/ul Urine Color STRAW Urine Clarity CLEAR Urine pH 8.0 Urine Specific [place] 1.006 Urine Ketones NEGATIVE mg/dL Urine Nitrite NEGATIVE mg/dL Urine Bilirubin NEGATIVE mg/dL Urine Urobilinogen NEGATIVE mg/dL Urine Leukocyte Esterase 3+ Anali/ul Urine Microscopic RBC 43 /HPF Urine Microscopic WBC 45 /HPF Urine Squamous Epithelial Cells FEW /HPF Urine Bacteria FEW /HPF Urine Hemoglobin 3+ mg/dL Urine Glucose NEGATIVE mg/dL Urine Total Protein NEGATIVE mg/dl Sodium Level 143 mmol/L Potassium Level 3.5 mmol/L Chloride Level 112 mmol/L Carbon Dioxide Level 23 mmol/L Anion Gap 8 Blood Urea Nitrogen 7 mg/dl Creatinine 0.50 mg/dl Est Glomerular Filtrat > 60 mL/min Rate mL/min Glucose Level 101 mg/dl Calcium Level 8.9 mg/dl Total Bilirubin 0.3 mg/dl Direct Bilirubin 0.00 mg/dl Indirect Bilirubin 0.3 mg/dl Aspartate Amino Transf (AST/SGOT) 47 IU/L Alanine 43 IU/L Aminotransferase (ALT/SGPT) Alkaline Phosphatase 110 IU/L Total Protein 6.4 g/dl Albumin 3.2 g/dl Globulin 3.20 g/dl Albumin/Globulin Ratio 1.00 POC Beta HCG, Qualitative POSITIVE Current Medications Medications Dose Sig/Deangelo Start Time Status Last (Trade) Ordered Route PRN Stop Time Admin Dose Reason Admin Sodium 1,000 ml @ Q1H ONCE 05/10/19 DC 05/10/19 Chloride 1,000 mls/hr IV 02:00 01:42 05/10/19 02:59 Ondansetron 4 mg ONCE STAT 05/10/19 DC 05/10/19 HCl (Zofran IV 01:33 01:44 Inj) 05/10/19 01:35 Ketorolac 30 mg ONCE STAT 05/10/19 DC 05/10/19 Tromethamine IV 01:33 02:03 (Toradol) 05/10/19 01:35 Ceftriaxone 50 ml @ ONCE ONCE 05/10/19 DC 05/10/19 Sodium 100 mls/hr IVPB 02:30 02:26 05/10/19 02:59 1,000 mg ONCE STAT 05/10/19 DC 05/10/19 Acetaminophen PO 03:18 03:28 (Tylenol 05/10/19 03:19 Tab) Morphine 2 mg ONCE STAT 05/10/19 DC 05/10/19 Sulfate IV 03:18 03:28 (morphine) 05/10/19 03:19 Procedures/MDM ED COURSE: ED course includes a thorough examination and history. The patient was stable throughout ED course. I kept the patient and/or family informed of laboratory and diagnostic imaging results throughout the ED course. LABS: CBC: no e/o of systemic infection or severe anemia CMP: no e/o severe acidosis, alkalosis, renal failure, diabetic ketoacidosis, liver disease Urinalysis positive for 3+ leukocyte Estrace, 43 RBCs, 45 WBCs, few bacteria, 3+ hemoglobin MEDICATIONS GIVEN IN ER: Ketorolac, Zofran IV NS patient tolerated medication well with no adverse reactions. Patient reported improvement in pain. DIAGNOSTIC IMAGING: None pROCEDURES: None. MEDICAL DECISION MAKING: Patient reassessment 0315. Patient reports that pain decreased to 5 of 10 initially now is approximately 6-10 and she is requesting more pain medication. Vital signs stable. Alert neurological deficits. Low suspicion for life-threatening medical emergency. Low suspicion for acute abdominal emergency. Low suspicion for infectious process that requires hospitalization. Low suspicion for neurological emergency. Low suspicion for hypertensive crisis or cardiovascular emergency Otherwise healthy patient presenting with constellation of symptoms likely representing urinary tract infection, nausea vomiting, headache as characterized by history, physical exam findings, lab findings. Patient reassessment @ 0400: Patient with decreasing pain. Patient hemodynamically stable. No respiratory distress, otherwise relatively well appearing and nontoxic. Disposition given. Patient educated on diagnoses, prescriptions, follow-up care, return precautions. Strict return precautions given for worsening condition; questions answered discharge. Patient verbalizes understanding of discharge instructions. PRESCRIPTIONS FOR HOME: Ibuprofen, acetaminophen, Keflex DISPOSITION: DISCHARGE At this time, patient is stable for discharge and outpatient management. I have instructed the patient to follow-up with his/her primary care physician in 1-2 days. I have discussed with the patient the possibility of needing to see a specialist for further workup and imaging studies if symptoms persist. I have instructed the patient to promptly return to the ER for any new or worsening symptoms including increased pain, fever, nausea, vomiting, weakness or LOC. The patient and/or family expressed understanding of and agreement with this plan. All questions were answered. Home care instructions were provided. DISCLAIMER: Inadvertent spelling and grammatical errors are likely due to EHR/dictation software use and do not reflect on the overall quality of patient care. Also, please note that the electronic time recorded on this note does not necessarily reflect the actual time of the patient encounter. Departure Diagnosis: Primary Impression: Urinary tract infection Additional Impressions: Nausea & vomiting Headache Condition: Stable Patient Instructions: Urinary Tract Infections in Women, Self-Care for H eadaches, Nausea and Vomiting-Adult Referrals: COMMUNITY CLINICS YOU HAVE RECEIVED A MEDICAL SCREENING EXAM AND THE RESULTS INDICATE THAT YOU DO NOT HAVE A CONDITION THAT REQUIRES URGENT TREATMENT IN THE EMERGENCY DEPARTMENT. FURTHER EVALUATION AND TREATMENT OF YOUR CONDITION CAN WAIT UNTIL YOU ARE SEEN IN YOUR DOCTORS OFFICE WITHIN THE NEXT 1-2 DAYS. IT IS YOUR RESPONSIBILITY TO MAKE AN APPOINTMENT FOR FOLOW-UP CARE. IF YOU HAVE A PRIMARY DOCTOR --you should call your primary doctor and schedule an appointment IF YOU DO NOT HAVE A PRIMARY DOCTOR YOU CAN CALL OUR PHYSICIAN REFERRAL HOTLINE AT IF YOU CAN NOT AFFORD TO SEE A PHYSICIAN YOU CAN CHOSE FROM THE FOLLOWING [facility] [address] [facility] [address] [facility] [address] [facility] [address] [facility] [address] [facility] [facility] [address] [facility]. [facility] YOU HAVE RECEIVED A MEDICAL SCREENING EXAM AND THE RESULTS INDICATE THAT YOU DO NOT HAVE A CONDITION THAT REQUIRES URGENT TREATMENT IN THE EMERGENCY DEPARTMENT. FURTHER EVALUATION AND TREATMENT OF YOUR CONDITION CAN WAIT UNTIL YOU ARE SEEN IN YOUR DOCTORS OFFICE WITHIN THE NEXT 1-2 DAYS. IT IS YOUR RESPONSIBILITY TO MAKE AN APPOINTMENT FOR FOLOW-UP CARE. IF YOU HAVE A PRIMARY DOCTOR --you should call your primary doctor and schedule and appointment IF YOU DO NOT HAVE A PRIMARY DOCTOR YOU CAN CALL OUR PHYSICIAN REFERRAL HOTLINE AT . IF YOU CAN NOT AFFORD TO SEE A PHYSICIAN YOU CAN CHOSE FROM THE FOLLOWING [facility] INSTITUTIONS: [facility] [address] [place] [address] [facility] [address] [place] [address] [facility] [address] [place] [address] Additional Instructions: Thank you very much for allowing us to participate in your care. Your health and safety is our top priority at [facility]. It is important to read all discharge instructions and education provided in your discharge packet. Call your primary care doctor TOMORROW for an appointment during the next 2-4 days and bring all the information and medications prescribed. Have prescriptions filled and follow precisely the directions on the label. --Ibuprofen is a medication that will help with pain/inflammation. At the dosage of 600 to 800 mg, this will help with inflammation/swelling. Take this medication as prescribed. --Acetaminophen as a medication for pain and/or fever. Take this medication as needed for mild to moderate pain. This medication will not cause drowsiness. -Cephalexin is an antibiotic; take this medication every day as listed on your prescription. You must complete the entire course of treatment that is listed on your prescription this is very important because it takes a certain number of days to kill the bacteria that is causing the infection. If the symptoms get worse and your provider is unavailable, return to the Emergency Department immediately. ABDIAS GARCES NP May 11, 2019 20:57
== END 2019-05-10 04:06 | disposition home or self-care (01) ==
LOC: FTE 00:52
DX: O86.20 Urinary tract infection following delivery, unspecified (principal); B96.89 Other specified bacterial agents as the cause of diseases classified elsewhere; R51 Headache
CPT/HCPCS: 80053; 81001; 81025; 85025; J0696; J1885; J2270; J2405; J7030; Z7610; 81003; 96374; 96375